=== PATIENT | female | born 1995 | race Hispanic/Latino ===

== ENCOUNTER 2020-07-20 17:23 | Emergency (ER) | payer OTHER ==
[~2020-07-20] VITALS: Ht 160 cm; Wt 55.0 kg
[~2020-07-20 17:23] MED LIST: AZITHROMYCIN250 MG PO; CEPHALEXIN500 MG PO; CIPROFLOXACN500 MG PO; IBUPROFEN600 MG PO; KEFLEX500 M1 PO; NAPROSYN500 MG PO; NITROFURANTOIN100 MG PO; PRE-NATAL PO; ULTRAM50 M1 PO
[2020-07-20 19:06] VITALS: BP 109/71
== END 2020-07-20 19:07 | disposition home or self-care (01) | DRG 833 ==
LOC: ED 17:23
DX: O9A.211 Injury, poisoning and certain other consequences of external causes complicating pregnancy, first trimester (principal); S20.212A Contusion of left front wall of thorax, initial encounter; Z3A.01 Less than 8 weeks gestation of pregnancy; V43.52XA Car driver injured in collision with other type car in traffic accident, initial encounter

== ENCOUNTER 2021-11-17 12:35 | Emergency (ER) | payer MEDICAID ==
[~2021-11-17] VITALS: Ht 160 cm; Wt 67.0 kg
[2021-11-17] VITALS (12 sets, daily range): BP systolic 96–112; BP diastolic 65–78
== END 2021-11-17 15:53 | disposition home or self-care (01) ==
LOC: ED 12:35
DX: T78.40XA Allergy, unspecified, initial encounter (principal); X58.XXXA Exposure to other specified factors, initial encounter

== ENCOUNTER 2022-12-25 07:16 | Emergency (ER) | payer SELFPAY ==
[~2022-12-25] VITALS: Ht 160 cm; Wt 60.0 kg
[2022-12-25] MEDS ORDERED: IBUPROFEN600 MG PO (09:20)
[2022-12-25] MEDS ORDERED: ZITHROMAX250 MG PO (09:20)
[2022-12-25] MEDS ORDERED: MEDROL DOSEPAK4 MG PO (09:20)
[2022-12-25 09:44] VITALS: BP 115/77
== END 2022-12-25 10:01 | disposition home or self-care (01) | DRG 179 ==
LOC: ED 07:16
DX: U07.1 COVID-19 (principal); R50.9 Fever, unspecified; R05.9 Cough, unspecified; R52 Pain, unspecified